=== PATIENT | female | born 1950 | race Hispanic/Latino ===

== ENCOUNTER 2024-07-04 08:53 | Day surgery (SDC) | payer MEDICARE ==
[2024-07-02 12:54] LABS: BASOPHILS # (AUTO) 0.09 K/uL (0.00-0.20); BASOPHILS % (AUTO) 1.1 % (0.0-5.0); EOSINOPHILS # (AUTO) 0.26 K/uL (0.00-0.70); HEMATOCRIT 41.4 % (36-48); IMMATURE GRANULOCYTE ABSOLUTE 0.06 K/uL (0-1); LYMPHOCYTES # (AUTO) 2.4 K/uL (1.0-4.8); LYMPHOCYTES % (AUTO) 27.9 % (21.0-51.0); MEAN CORPUSCULAR HEMOGLOBIN 31.4 pg (27.0-33.0); MEAN CORPUSCULAR HGB CONC 32.1 g/dL (32.0-36.0); MEAN CORPUSCULAR VOLUME 97.9 fL (79-99); MONOCYTES # (AUTO) 0.6 K/uL (0.1-1.0); MONOCYTES % (AUTO) 6.8 % (3.0-13.0); NEUTROPHILS # (AUTO) 5.2 K/uL (1.8-7.7); NEUTROPHILS % (AUTO) 60.5 % (40.0-77.0); PLATELET COUNT (AUTO) 204 K/uL (130-400); RED BLOOD CELL COUNT(AUTO) 4.23 MIL/uL (4.00-5.50); RED CELL DISTRIBUTION WIDTH 14.2 % (11.0-15.5); WHITE BLOOD COUNT (AUTO) 8.6 K/uL (4.8-10.8)
[2024-07-02 13:04] LABS: CREATININE 1.2 mg/dL (0.5-1.0); POTASSIUM 5.1 mmol/L (3.5-5.1)
[2024-07-02 13:26] VITALS: BP 138/70; PULSE 70; RESP 18; TEMP 97.9
[~2024-07-04] VITALS: Ht 160 cm; Wt 87.3 kg
[2024-07-04] VITALS (18 sets, daily range): BP systolic 92–143; BP diastolic 49–69; PULSE 54–88; RESP 16–24; TEMP 97.5–97.9
[~2024-07-04 08:53] MED LIST: ATOR10TA69 PO; CHOL-34 PO; FISH1CAP63 PO; GABA-529 PO; METO-391 PO; PARO-37 PO
[2024-07-04] MEDS: LACTATED RINGERS 1000ML 1,000 ML IV ONE (10:04)
[2024-07-04] MEDS: cefTRIAXone 1G VIAL ONE (10:04)
[2024-07-04] MEDS ORDERED: FAMOTIDINE 20MG VIAL IV ONE (10:08)
[2024-07-04] MEDS ORDERED: acetaMINOPHEN 1,000 MG/100 ML VIAL IV ONE (10:08)
[2024-07-04] MEDS ORDERED: LIDOCAINE PF 100MG/5ML (2%) SYRINGE 5ML ONE (10:33)
[2024-07-04] MEDS ORDERED: rocuRONium bROMide 10MG/1ML 5ML VL ONE (10:33)
[2024-07-04] MEDS ORDERED: FENTanyl CITRate PF 50 MCG/1 ML 2ML VIAL ONE (10:34)
[2024-07-04] MEDS ORDERED: proPOFol 10 MG/ML 20ML VIAL IV ONE (10:34)
[2024-07-04] MEDS ORDERED: dexaMETHasone SOD PHOSPHATE 10MG/ML 1ML VIAL ONE (11:04)
[2024-07-04] MEDS ORDERED: ondanSETRON 4MG INJ ONE (11:04)
[2024-07-04] MEDS: cefTRIAXone 1G VIAL IVPB SCH (11:07)
[2024-07-04] MEDS: IOHEXOL-350 50ML VIAL IV ONE (11:18)
[2024-07-04] MEDS ORDERED: GLYCOPYRROLATE 0.2 MG/ML 5 ML VIAL ONE (11:29)
[2024-07-04] MEDS ORDERED: NEOSTIGMINE METHYLSULFATE 1MG/ML IV ONE (11:29)
[2024-07-04] MEDS: IpraTROPium/alBUTERol SULFATE 3 ML SOLUTION IH ONE ×2 (12:09)
[2024-07-04] MEDS ORDERED: PHENAZOpyridine HCL 200 MG TAB 200 MG TABLET PO ONE (13:00)
[2024-07-04] MEDS: PHENAZOpyridine HCL 200 MG TAB 200 MG TABLET ONE (13:08)
[2024-07-04] MEDS ORDERED: PHEN-846 PO (13:28)
== END 2024-07-04 13:35 | disposition home or self-care (01) ==
LOC: DAH 08:53
PROVIDERS: ATTEND Urology
DX: N13.30 Unspecified hydronephrosis (principal); N17.9 Acute kidney failure, unspecified; I12.9 Hypertensive chronic kidney disease with stage 1 through stage 4 chronic kidney disease, or unspecified chronic kidney disease; N18.30 Chronic kidney disease, stage 3 unspecified; J44.9 Chronic obstructive pulmonary disease, unspecified; M81.0 Age-related osteoporosis without current pathological fracture; F41.9 Anxiety disorder, unspecified; E78.5 Hyperlipidemia, unspecified; K21.9 Gastro-esophageal reflux disease without esophagitis; F17.210 Nicotine dependence, cigarettes, uncomplicated; M13.0 Polyarthritis, unspecified; M25.572 Pain in left ankle and joints of left foot; R31.0 Gross hematuria; E78.2 Mixed hyperlipidemia; I25.10 Atherosclerotic heart disease of native coronary artery without angina pectoris; R73.03 Prediabetes; F41.1 Generalized anxiety disorder; F32.9 Major depressive disorder, single episode, unspecified; M47.817 Spondylosis without myelopathy or radiculopathy, lumbosacral region; M48.061 Spinal stenosis, lumbar region without neurogenic claudication; H11.31 Conjunctival hemorrhage, right eye; G57.83 Other specified mononeuropathies of bilateral lower limbs; S83.262A Peripheral tear of lateral meniscus, current injury, left knee, initial encounter; A09 Infectious gastroenteritis and colitis, unspecified; M71.22 Synovial cyst of popliteal space [Baker], left knee; D51.9 Vitamin B12 deficiency anemia, unspecified; R42 Dizziness and giddiness; R91.1 Solitary pulmonary nodule; M85.89 Other specified disorders of bone density and structure, multiple sites; I11.9 Hypertensive heart disease without heart failure; Z90.710 Acquired absence of both cervix and uterus; Z85.43 Personal history of malignant neoplasm of ovary; Z85.51 Personal history of malignant neoplasm of bladder; Z79.899 Other long term (current) drug therapy; X58.XXXA Exposure to other specified factors, initial encounter; Y93.89 Activity, other specified; Y92.89 Other specified places as the place of occurrence of the external cause; Y99.8 Other external cause status
CPT/HCPCS: 80048; 85025; 36415; 93005; 52332; 52351; 88305; 74420; 94640; A6260; A4663; J7120 ×2; C1758; C2617; J3490 ×3; J3010; J1100; J2003; J0696; J2704; J2405; J2710; Q9967; A4358; C1769 ×2; A4215; A4223; A4222; A4221; A4600; A4510

== ENCOUNTER 2024-08-01 08:53 | Day surgery (SDC) | payer MEDICARE ==
[2024-07-30 12:43] LABS: BASOPHILS % (AUTO) 1.1 % (0.0-5.0); EOSINOPHILS # (AUTO) 0.35 K/uL (0.00-0.70); EOSINOPHILS % (AUTO) 3.9 % (0.0-8.0); HEMATOCRIT 41.5 % (36-48); IMMATURE GRANULOCYTE ABSOLUTE 0.07 K/uL (0-1); LYMPHOCYTES # (AUTO) 2.1 K/uL (1.0-4.8); LYMPHOCYTES % (AUTO) 23.8 % (21.0-51.0); MEAN CORPUSCULAR HEMOGLOBIN 31.6 pg (27.0-33.0); MEAN CORPUSCULAR HGB CONC 32.8 g/dL (32.0-36.0); MEAN CORPUSCULAR VOLUME 96.3 fL (79-99); MONOCYTES # (AUTO) 0.8 K/uL (0.1-1.0); MONOCYTES % (AUTO) 8.5 % (3.0-13.0); NEUTROPHILS # (AUTO) 5.6 K/uL (1.8-7.7); NEUTROPHILS % (AUTO) 61.9 % (40.0-77.0); PLATELET COUNT (AUTO) 225 K/uL (130-400); RED BLOOD CELL COUNT(AUTO) 4.31 MIL/uL (4.00-5.50); RED CELL DISTRIBUTION WIDTH 13.8 % (11.0-15.5)
--- NOTE | 2024-07-30 12:46 | EKG ---
[facility] Test Date: 2024-07-30 Test Time: 13:13:58 Pat Name: LIMA VILLANUEVA Department: [facility] Room: Gender: F Auto Tester: [id number] : 1950 Requested By: JOSE MINAYA Order Number: [id number] Reading MD: Wilfrid Bernardo Measurements Intervals [place] Rate: 61 P: 40 GA: 158 QRS: -23 QRSD: 88 T: 38 QT: 412 QTc: 414 Interpretive Statements Sinus rhythm Low voltage, precordial leads Compared to ECG 07/02/2024 12:21:04 Low QRS voltage now present Myocardial infarct finding no longer present Electronically Signed On 07-31-2024 18:34:56 DATABASE TESTER by Wilfrid Bernardo Please click the below link to view image of tracing.
[2024-07-30 12:50] VITALS: BP 126/66; PULSE 62; RESP 18; TEMP 97.7
[2024-07-30 12:52] LABS: CREATININE 1.2 mg/dL (0.5-1.0); POTASSIUM 3.9 mmol/L (3.5-5.1)
[~2024-08-01] VITALS: Ht 160 cm; Wt 86.3 kg
[2024-08-01] VITALS (18 sets, daily range): BP systolic 126–157; BP diastolic 56–80; PULSE 68–90; RESP 14–16; TEMP 96.3–97.5
[2024-08-01] MEDS: cefTRIAXone 1G VIAL ONE (09:59)
[2024-08-01] MEDS: LACTATED RINGERS 1000ML 1,000 ML IV ONE (10:00)
[2024-08-01] MEDS ORDERED: LIDOCAINE PF 100MG/5ML (2%) SYRINGE 5ML ONE (10:28)
[2024-08-01] MEDS ORDERED: dexaMETHasone SOD PHOSPHATE 10MG/ML 1ML VIAL ONE (10:28)
[2024-08-01] MEDS ORDERED: ondanSETRON 4MG INJ ONE (10:29)
[2024-08-01] MEDS ORDERED: SUCCINYLCHOLINE CHLORIDE 20 MG/ML 10 ML VIAL ONE (10:29)
[2024-08-01] MEDS ORDERED: rocuRONium bROMide 10MG/1ML 5ML VL ONE (10:29)
[2024-08-01] MEDS ORDERED: GLYCOPYRROLATE 0.2 MG/ML 5 ML VIAL ONE (10:29)
[2024-08-01] MEDS ORDERED: NEOSTIGMINE METHYLSULFATE 1MG/ML IV ONE (10:29)
[2024-08-01] MEDS ORDERED: FENTanyl CITRate PF 50 MCG/1 ML 2ML VIAL ONE (10:30)
[2024-08-01] MEDS ORDERED: proPOFol 10 MG/ML 20ML VIAL IV ONE (10:30)
[2024-08-01] MEDS ORDERED: MIDAZOLAM HCL 1 MG/ML 2ML VIAL ONE (10:47)
[2024-08-01] MEDS ORDERED: ketaMINE 50MG/ML SYRINGE 50 MG/ML DISP.SYRIN ONE (11:00)
[2024-08-01] MEDS ORDERED: IOHEXOL-350 50ML VIAL IV ONE (12:55)
--- NOTE | 2024-08-01 13:49 | HMCIMG ---
UROGRAPHY RETROGRADE REASON: RETROGRADE PYELOGRAM, LEFT SIDE, STENT PLCMT. COMPARISON: None TECHNIQUE: Retrograde pyelogram was performed by referring physician. FINDINGS: Please see procedure report by referring physician. IMPRESSION: Intraoperative films.
[2024-08-01] MEDS: PHENAZOpyridine HCL 200 MG TAB 200 MG TABLET PO ONE (13:57)
--- NOTE | 2024-08-01 14:14 | NUR ---
Patient aox4. Denies c/o pain or discomfort. Voiced understanding to Colonoscopy precautions and follow up expectations. Sanchez catheter removed with tip intact. Ambulated to bathroom with standby assist. Voided large amount of clear urine. PIV discontinued with catheter tip intact. Full and complete Discharge instructions given to Patient and Family. All questions answered. W/C to POV with Family to Home.
--- NOTE | 2024-08-04 12:25 | OP ---
DATE OF PROCEDURE: 08/01/2024 PREOPERATIVE DIAGNOSES: Include left hydronephrosis, left flank pain, history of bladder cancer. PROCEDURE PERFORMED: Cystourethroscopy, left retrograde pyelogram, left ureteroscopy with biopsy left ureteral tumor, laser ablation of left ureteral tumor and insertion of double-J ureteral stent. ANESTHESIA: General endotracheal anesthesia. SURGEON: Peg Davalos MD PREOPERATIVE INDICATIONS: This is a 74-year-old female with a history of bladder cancer and acute onset of left flank pain and associated hydronephrosis with acute kidney injury. The patient had a decrease in her glomerular filtration rate to 49. Attempts at retrograde pyelogram and ureteroscopy recently were unsuccessful as dye would not advance past the mid ureteral narrowing. With great difficulty, a left ureteral stent was eventually placed and the patient is returning today for second look to help diagnose the obstruction in her left ureter. The patient's creatinine is normal, however, her glomerular filtration rate did not improve with the stent in place, but her pain did resolve. Preoperatively, the patient received Rocephin 1 g intravenously. Her creatinine on day of surgery is 1.2. Her GFR was 48, which again is unchanged. She does have a significant history for smoking and a distant history of ovarian cancer. Additionally, some tissue was sent to pathology at her first stent placement and this was negative for cancer. DESCRIPTION OF PROCEDURE: The patient was brought to the operating room and placed in supine position. She was sterilely draped and prepped in the usual fashion in the dorsal lithotomy position following adequate general endotracheal anesthesia. All pressure points were padded and a 22-Thai cystoscopic sheath with 30-degree angle lens in place was positioned per urethra and negotiated into the bladder. The stent was in good location and this was a 24 x 6-Thai stent. This was grasped with a flexible grasping forceps and brought out through the patient's urethral meatus. A guidewire was advanced into the existing stent and the stent was then removed. A semirigid ureteroscope was then followed along the course of this wire until what appeared to be a papillary tumor was encountered. Attempts to biopsy this were not successful with the grasping forceps, so a nitinol basket was then passed through the lumen of the ureteroscope to the level of the tumor. Multiple pieces of tissue were then removed using this basket and these were labeled left ureteral tumor and sent to pathology for review. A holmium laser was then used to ablate the tumor. This was a 200 micron fiber and this was passed through the ureteroscope to the level of the tumor. Total energy delivered was 1205 kilojoules and a laser time of 1 minute. At the end of the procedure, the tumor was gone and there was patency to the ureter. A new stent was placed after performing a retrograde pyelogram to confirm integrity of the collecting system. This was also a 24 cm x 6-Thai stent. The patient's bladder was then copiously irrigated multiple times and a 16-Thai Sanchez catheter was inserted. This will be removed prior to her discharge home today. The tissue was again sent to pathology to get a definitive diagnosis. She is to follow up in 10-14 days to review her path report and discuss the next steps for treatment. Of note, the patient has discontinued smoking recently and there were no signs of residual bladder tumor. TID: [id number] RECEIPT: [id number]
== END 2024-08-01 14:25 | disposition home or self-care (01) ==
LOC: DAH 08:53
PROVIDERS: ATTEND Urology
DX: N13.1 Hydronephrosis with ureteral stricture, not elsewhere classified (principal); D30.22 Benign neoplasm of left ureter; N17.9 Acute kidney failure, unspecified; J44.9 Chronic obstructive pulmonary disease, unspecified; I10 Essential (primary) hypertension; K21.9 Gastro-esophageal reflux disease without esophagitis; I25.2 Old myocardial infarction; N23 Unspecified renal colic; Z87.891 Personal history of nicotine dependence; Z85.51 Personal history of malignant neoplasm of bladder; Z85.43 Personal history of malignant neoplasm of ovary; Z79.899 Other long term (current) drug therapy
CPT/HCPCS: 80048; 85025; 36415; 93005; 52354; 52332; 88305; 74420; A6260; A4663; A4354; C1758; C2617; J7120; J3010; J1100; J0330; J3490 ×3; J2003; J0696; J2250; J2704; J2405; J2710; Q9967; A4358; C1769 ×2; A4649; A4215; A4223; A4213; A4222; A4221; A4510; A4600

== ENCOUNTER 2024-08-29 08:28 | Day surgery (SDC) | payer MEDICARE ==
[2024-08-27 13:08] VITALS: BP 138/70; PULSE 72; RESP 18; TEMP 97.9
[2024-08-27 13:16] LABS: POTASSIUM 4.8 mmol/L (3.5-5.1)
--- NOTE | 2024-08-27 14:17 | EKG ---
[facility] Test Date: 2024-08-27 Test Time: 13:50:52 Pat Name: LIMA VILLANUEVA Department: [facility] Room: [facility] Gender: F Animal Services Officer: [id number] : 1950 Requested By: JOSE MINAYA Order Number: [id number] Reading MD: Dino Brandon Measurements Intervals [place] Rate: 61 P: 45 DE: 153 QRS: -19 QRSD: 88 T: 36 QT: 399 QTc: 401 Interpretive Statements Sinus rhythm Possible V1-2-3-4 lead placement error Low voltage, precordial leads Compared to ECG 07/30/2024 13:13:58 No significant changes Electronically Signed On 08-31-2024 17:17:19 DOG DAY CARE ATTENDANT by Dino Brandon Please click the below link to view image of tracing.
[~2024-08-29] VITALS: Ht 160 cm; Wt 88.3 kg
[2024-08-29] VITALS (17 sets, daily range): BP systolic 109–160; BP diastolic 53–80; PULSE 59–74; RESP 13–19; TEMP 97.3–98.3
[2024-08-29] MEDS: cefTRIAXone 1G VIAL IVPB SCH (07:00)
[~2024-08-29 08:28] MED LIST changes: +cefTRIAXone 1G VIAL ONE
[2024-08-29] MEDS: LACTATED RINGERS 1000ML 1,000 ML IV ONE (09:05)
[2024-08-29] MEDS: IpraTROPium/alBUTERol SULFATE 3 ML SOLUTION IH ONE (09:12)
--- NOTE | 2024-08-29 09:22 | NUR ---
Patient with mild head congestion. Lung putnam clear throughout. Duoned provided. Good relief stated. Sats 98% ora. AISLINN Chaudhari and Dr. Davalos updated. Cast to proceed as per Physician.
[2024-08-29] MEDS ORDERED: IOHEXOL-350 50ML VIAL IV ONE (10:17)
[2024-08-29] MEDS ORDERED: FENTanyl CITRate PF 50 MCG/1 ML 2ML VIAL ONE ×2 (10:32→16:08)
[2024-08-29] MEDS ORDERED: rocuRONium bROMide 10MG/1ML 5ML VL ONE ×2 (10:32→11:51)
[2024-08-29] MEDS ORDERED: MIDAZOLAM HCL 1 MG/ML 2ML VIAL ONE (10:32)
[2024-08-29] MEDS ORDERED: proPOFol 10 MG/ML 20ML VIAL IV ONE (10:32)
[2024-08-29] MEDS ORDERED: phenylEPHRINE HCL 10 MG/ML 1ML VIAL IV ONE (11:22)
[2024-08-29] MEDS ORDERED: ondanSETRON 4MG INJ ONE (11:44)
[2024-08-29] MEDS: cefTRIAXone 1G VIAL IVPB ONE (11:46)
[2024-08-29] MEDS ORDERED: GLYCOPYRROLATE 0.2 MG/ML 5 ML VIAL ONE (12:18)
[2024-08-29] MEDS ORDERED: NEOSTIGMINE METHYLSULFATE 1MG/ML IV ONE (12:29)
[2024-08-29] MEDS: acetaMINOPHEN 100 ML ONE (13:18)
--- NOTE | 2024-08-29 13:45 | HMCIMG ---
UROGRAPHY RETROGRADE REASON: LT hydronephrosis Cysto. COMPARISON: None TECHNIQUE: Retrograde pyelogram was performed. FINDINGS: Please see procedure report by referring physician. IMPRESSION: Intraoperative films.
[2024-08-29] MEDS: PHENAZOpyridine HCL 200 MG TAB 200 MG TABLET ONE (14:03)
--- NOTE | 2024-08-29 14:06 | NUR ---
Full and complete Discharge Instructions given to Patient and Family both verbally and in writing.. All questions answered. Voiced understanding to Surgical procedure, precautions and Follow Up. Sanchez Catheter education completed. Sanchez Catheter d/c'd with catheter tip intact. Patient voiced understanding in full. PIV removed with catheter tip intact. Denies c/o pain or discomfort. D/C'd W/C to POV with Family to Home.
--- NOTE | 2024-08-30 00:21 | OP ---
DATE OF PROCEDURE: 08/29/2024 PREOPERATIVE DIAGNOSES: Left ureteral lesion, left ureteral stricture, left hydronephrosis, history of bladder cancer and long history of smoking. POSTOPERATIVE DIAGNOSES: Left ureteral lesion, left ureteral stricture, left hydronephrosis, history of bladder cancer and long history of smoking. PROCEDURE PERFORMED: Cystourethroscopy, left retrograde pyelogram, left ureteroscopy, laser ablation of ureteral tumor, insertion left ureteral stent (24 cm x 6-Anguillan). ANESTHESIA: General endotracheal anesthesia. SURGEON: Peg Davalos MD PREOPERATIVE INDICATIONS: This is a 74-year-old female who has a history of non-muscle invasive bladder cancer and new-onset left hydronephrosis with radiographic demonstration of narrowing in her left mid ureter. The patient has had staged procedure initially with stenting as the mid ureter was completely obstructed and not allowing dye to advance beyond the left mid ureter. After dilation from indwelling stent, ureteroscopy was then performed with tissue biopsy and laser ablation of lesion in the mid ureter. The biopsy came back negative for malignancy. The patient presents today for repeat retrograde and second look with possible stent removal. Preoperatively, she received Rocephin 1 g intravenously and during the interim with the stenting, the patient's glomerular filtration rate has increased from the mid 40 to now 59 with a creatinine of 1.0. Her H and H was 13.6 and 41.5 respectively. DESCRIPTION OF PROCEDURE: The patient was brought to the operating room and placed in supine position. Following adequate general endotracheal anesthesia, she was sterilely draped and prepped in the usual fashion in the dorsal lithotomy position. ALIZA hose and Venodyne stockings were placed on her lower extremities bilaterally and all pressure points were padded. A 22-Anguillan cystoscopic sheath with 30-degree angled lens in place was positioned per urethra and negotiated into her bladder. The bladder was negative for any recurrent tumor. The ureteral stent could be seen extending from the left ureteral orifice and this was grasped with a flexible grasping forceps and brought out through the patient's urethral meatus. A guidewire was then passed through the indwelling stent and advanced into the region of the left renal pelvis under direct fluoroscopic visualization. Stent was removed and a semirigid ureteroscope was then advanced alongside the wire to the level of the prior stricture and lesion, which was a nonmalignant growth. The area seemed to be well healed, although there was residual tissue evident. A 365 holmium laser micron fiber was then advanced through the lumen of the ureteroscope and the residual tissue was then ablated using a power level of 20 espinoza and the delivery of 0.528 kilojoules. Laser time was approximately 26 seconds. The lumen of the ureter was very visible and the scope was passed through this area and there were no other visible lesions. Following this, a 24 cm x 6-Anguillan ureteral stent was then coaxially placed over the indwelling guidewire and a good curl was noted in the region of the left renal pelvis and extending from the left ureteral orifice. Prior to putting in the stent, a retrograde pyelogram was performed and there were no other filling defects or any anatomic abnormalities noted to her proximal ureter or renal pelvis. The bladder was copiously irrigated and a 16-Anguillan Sanchez catheter was inserted. She was transported to the recovery room in stable condition. She will be given Pyridium prior to leaving the hospital and is to follow up in the office in 7-10 days. Most likely, I will recommend that the patient have a repeat retrograde prior to removing her stent without additional look. All this was discussed with the patient's relative. TID: [id number] RECEIPT: [id number]
== END 2024-08-29 14:05 | disposition home or self-care (01) ==
LOC: DAH 08:28
PROVIDERS: ATTEND Urology
DX: N13.1 Hydronephrosis with ureteral stricture, not elsewhere classified (principal); J44.9 Chronic obstructive pulmonary disease, unspecified; I10 Essential (primary) hypertension; K21.9 Gastro-esophageal reflux disease without esophagitis; F41.9 Anxiety disorder, unspecified; G62.9 Polyneuropathy, unspecified; Z85.43 Personal history of malignant neoplasm of ovary; Z87.891 Personal history of nicotine dependence; Z85.51 Personal history of malignant neoplasm of bladder; Z79.899 Other long term (current) drug therapy
CPT/HCPCS: 80048; 36415; 93005; 52344; 52332; 74420; 94640; A4663; A4354; C1758; C2617; J7120; J3010 ×2; J3490 ×3; J0696 ×2; J2250; J2704; J2405; J2710; J2371; Q9967; A4358; A4215; A4223; A4222; A4221; A4495; A4600